=== PATIENT | female | born 1970 | race African-American/Black ===

== ENCOUNTER 2020-03-03 07:36 | Emergency (ER) | payer OTHER ==
[2020-03-03] MEDS ORDERED: PHENYLEPHRINE 0.5% NOSE 15ML NAS ONE (08:24)
--- NOTE | 2020-03-03 09:40 | ER ---
Nurse's Notes [facility] Name: Carlos Eduardo Becerra Age: 49 yrs Sex: Female : 1970 Arrival Date: 03/03/2020 Time: 07:38 Bed 19 Private MD: Diagnosis: Epistaxis-left sided;Hypertensive heart disease-Poorly controlled Presentation: 03/03 08:02 Chief complaint: Patient states: blood pressure has been uncontrolled with regular BP dm5 medication. small nose bleed yesterday that stopped. This morning nose bleed has been going on for about 1 hour. Pt is passing large clots from nose. Coronavirus screen: Proceed with normal triage. Patient denies a cough. Patient denies shortness of breath or difficulty breathing. Patient denies measured and/or subjective temperature greater than 100.4F prior to today's visit. Patient denies travel on a cruise ship or to a country the [facility] currently lists as an affected area. Patient denies contact with known and/or suspected case of COVID-19. Ebola Screen: Patient negative for fever greater than or equal to 101.5 degrees Fahrenheit, and additional compatible Ebola Virus Disease symptoms Patient denies exposure to infectious person. Patient denies travel to an Ebola-affected area in the 21 days before illness onset. No symptoms or risks identified at this time. Initial Sepsis Screen: Does the patient meet any 2 criteria? No. Patient's initial sepsis screen is negative. Does the patient have a suspected source of infection? No. Patient's initial sepsis screen is negative. Risk Assessment: Do you want to hurt yourself or someone else? Patient reports no desire to harm self or others. Onset of symptoms was March 03, 2020. 08:02 Method Of Arrival: Ambulatory dm5 08:02 Acuity: JAGRUTI 3 dm5 Historical: - Allergies: 08:16 No Known Allergies; dm5 - Home Meds: 08:16 Hydrochlorothiazide Oral [Active]; pioglitazone 15 mg oral tab 1 tab once daily dm5 [Active]; Metformin Oral [Active]; - PMHx: 08:16 Diabetes - NIDDM; Hypertension; dm5 - Immunization history:: Adult Immunizations up to date. - Social history:: Smoking status: Patient denies any tobacco usage or history of. Screenin:19 Abuse screen: Denies threats or abuse. Denies injuries from another. Nutritional ss screening: No deficits noted. Tuberculosis screening: Never had TB. Fall Risk None identified. Assessment: 08:19 General: Appears in no apparent distress. uncomfortable, Behavior is calm, cooperative. ss Pain: Denies pain. Neuro: Level of Consciousness is awake, alert, obeys commands, Oriented to person, place, time, situation. Neuro: Denies blurred vision dizziness, headache. Cardiovascular: Capillary refill < 3 seconds is brisk in bilateral fingers. Respiratory: Airway is patent Respiratory effort is even, unlabored, Respiratory pattern is regular, symmetrical. GI: Patient currently denies diarrhea, nausea, vomiting. : No signs and/or symptoms were reported regarding the genitourinary system. EENT: Reports sensation that blood is draining to the back of her throat. EENT: nasal clamp applied. Blood noted to bilateral nares. Pt reports that her nose bleed began 1 hour ago. Derm: Skin is intact, is healthy with good turgor, Skin is dry, Skin is pink, warm \T\ dry. normal. Musculoskeletal: Circulation, motion, and sensation intact. Range of motion: intact in all extremities, Swelling absent. 08:21 Reassessment: Dr. Gardner at bedside at this time to assess patient. Pt reports she ss feels as if the bleeding may have slowed and states she feels as if there may be a clot in her nostril. Pt verbalizes understanding not to blow nose. 09:52 Reassessment: Patient appears in no apparent distress at this time. Patient and/or ss family updated on plan of care and expected duration. Pain level reassessed. Patient is alert, oriented x 3, equal unlabored respirations, skin warm/dry/pink. No bleeding noted at this time. Vital Signs: 08:02 BP 181 / 96; Pulse 94; Resp 18; Temp 98.2(TE); Pulse Ox 98% on R/A; Weight 127.01 kg dm5 (R); Height 5 ft. 8 in. (172.72 cm); Pain 0/10; 08:29 BP 150 / 85; Pulse 90; ss 09:46 BP 159 / 88; Pulse 82; Resp 15 S; Pulse Ox 99% on R/A; ss 08:02 Body Mass Index 42.57 (127.01 kg, 172.72 cm) dm5 ED Course: 07:38 Patient arrived in ED. mr 07:59 J Carlos Gardner MD is Attending Physician. kdr 08:05 Triage completed. [facility] 08:15 Latasha Galo, RN is Primary Nurse. ss 08:18 Arm band placed on right wrist. ss 08:19 Patient has correct armband on for positive identification. Bed in low position. Call ss light in reach. 08:19 Patient maintains SpO2 saturation greater than 95% on room air. ss 09:52 No provider procedures requiring assistance completed. Patient did not have IV access ss during this emergency room visit. Administered Medications: No medications were administered Outcome: 09:39 Discharge ordered by . kdr 09:52 Discharged to home ambulatory. ss 09:52 Condition: good 09:52 Discharge instructions given to patient, Instructed on discharge instructions, follow up and referral plans. Demonstrated understanding of instructions, follow-up care. 09:53 Patient left the ED. ss Signatures: Becca Hutchins, RN RN [facility] J Carlos Gardner MD MD [facility] mr Latasha Galo, RN RN ss
--- NOTE | 2020-03-03 09:40 | EDPHYS ---
Physician Documentation [facility] Name: Carlos Eduardo Becerra Age: 49 yrs Sex: Female : 1970 Arrival Date: 03/03/2020 Time: 07:38 Bed 19 Private MD: ED Physician J Carlos Gardner HPI: 03/03 11:15 This 49 yrs old Black Female presents to ER via Ambulatory with complaints of Nose kdr Bleed, High Blood Pressure. 11:15 The patient presents with a nose bleed, that is apparently anterior, from the left kdr nare, occurred from an unknown cause, that is continuous moderate amount with clots. 03/04 07:14 Onset: The symptoms/episode began/occurred suddenly, this morning. Modifying factors: kdr The symptoms are alleviated by nothing. the symptoms are aggravated by nothing. Associated signs and symptoms: The patient has no apparent associated signs or symptoms, Loss of consciousness: the patient experienced no loss of consciousness. Severity of symptoms: At their worst the symptoms were moderate in the emergency department the symptoms have improved mildly. The patient has experienced similar episodes in the past, but today's symptoms are worse, lasting longer. The patient has not recently seen a physician. Historical: - Allergies: 03/03 08:16 No Known Allergies; dm5 - Home Meds: 08:16 Hydrochlorothiazide Oral [Active]; pioglitazone 15 mg oral tab 1 tab once daily dm5 [Active]; Metformin Oral [Active]; - PMHx: 08:16 Diabetes - NIDDM; Hypertension; dm5 - Immunization history:: Adult Immunizations up to date. - Social history:: Smoking status: Patient denies any tobacco usage or history of. ROS: 03/04 07:14 Constitutional: Negative for fever, chills, and weight loss, Eyes: Negative for injury, kdr pain, redness, and discharge, Neck: Negative for injury, pain, and swelling, Cardiovascular: Negative for chest pain, palpitations, and edema, Respiratory: Negative for shortness of breath, cough, wheezing, and pleuritic chest pain, Abdomen/GI: Negative for abdominal pain, nausea, vomiting, diarrhea, and constipation, Back: Negative for injury and pain, : Negative for injury, bleeding, discharge, and swelling, MS/Extremity: Negative for injury and deformity, Skin: Negative for injury, rash, and discoloration, Neuro: Negative for headache, weakness, numbness, tingling, and seizure activity. Psych: Negative for depression, anxiety, suicide ideation, homicidal ideation, and hallucinations, Allergy/Immunology: Negative for hives, rash, and allergies, Endocrine: Negative for neck swelling, polydipsia, polyuria, polyphagia, and marked weight changes, Hematologic/Lymphatic: Negative for swollen nodes, abnormal bleeding, and unusual bruising. ENT: Positive for nose bleed. Exam: 07:14 Constitutional: This is a well developed, well nourished patient who is awake, alert, kdr and in no acute distress. Head/Face: Normocephalic, atraumatic. Neck: Trachea midline, no thyromegaly or masses palpated, and no cervical lymphadenopathy. Supple, full range of motion without nuchal rigidity, or vertebral point tenderness. No Meningismus. Chest/axilla: Normal chest wall appearance and motion. Nontender with no deformity. No lesions are appreciated. 07:14 ENT: Nose: External nose: no obvious acute abnormality, Nasal septum: Nasal mucosa: moist, bleeding, is seen from the left nare, and is minimal, There is a large clot in the left nare. Vital Signs: 03/03 08:02 BP 181 / 96; Pulse 94; Resp 18; Temp 98.2(TE); Pulse Ox 98% on R/A; Weight 127.01 kg dm5 (R); Height 5 ft. 8 in. (172.72 cm); Pain 0/10; 08:29 BP 150 / 85; Pulse 90; ss 09:46 BP 159 / 88; Pulse 82; Resp 15 S; Pulse Ox 99% on R/A; ss 08:02 Body Mass Index 42.57 (127.01 kg, 172.72 cm) dm5 MDM: 09:39 Patient medically screened. kdr 03/04 07:14 Data reviewed: vital signs, nurses notes, lab test result(s). Counseling: I had a kdr detailed discussion with the patient and/or guardian regarding: the historical points, exam findings, and any diagnostic results supporting the discharge/admit diagnosis, lab results, the need for outpatient follow up. Administered Medications: No medications were administered Disposition: 03/03/20 09:39 Discharged to Home. Impression: Epistaxis - left sided, Hypertensive heart disease - Poorly controlled. - Condition is Stable. - Discharge Instructions: Hypertension, [id number], Nosebleed, [id number]. - Medication Reconciliation Form, Thank You Letter form. - Follow up: Private Physician; When: 2 - 3 days; Reason: If symptoms return, Further diagnostic work-up, Recheck today's complaints, Continuance of care, Re-evaluation by your physician. - Problem is an acute exacerbation. - Symptoms are resolved. Signatures: Becca Hutchins, RN RN dm5 J Carlos Gardner MD MD kdr Latasha Galo RN RN ss Corrections: (The following items were deleted from the chart) 03/03 09:53 09:39 03/03/2020 09:39 Discharged to Home. Impression: Epistaxis - left sided; ss Hypertensive heart disease - Poorly controlled. Condition is Stable. Forms are Medication Reconciliation Form, Thank You Letter, Antibiotic Education, Prescription Opioid Use. Follow up: Private Physician; When: 2 - 3 days; Reason: If symptoms return, Further diagnostic work-up, Recheck today's complaints, Continuance of care, Re-evaluation by your physician. Problem is an acute exacerbation. Symptoms are resolved. kdr
[2020-03-03 09:59] VITALS: TEMP 98.2
[2020-03-03 10:02] VITALS: BP 159/88; O2SAT 99
== END 2020-03-03 09:53 | disposition home or self-care (01) ==
LOC: ER 07:36
DX: R04.0 Epistaxis (principal); I11.9 Hypertensive heart disease without heart failure; I10 Essential (primary) hypertension; E11.9 Type 2 diabetes mellitus without complications
CPT/HCPCS: 99284